=== PATIENT | female | born 1995 | race Caucasian/White ===

== ENCOUNTER 2022-07-25 12:56 | Emergency (ER) | payer OTHER ==
[~2022-07-25] VITALS: Ht 165.1 cm; Wt 46.7 kg
[2022-07-25] MEDS ORDERED: ONDANSETRON HCL/PF 4 MG/2 ML VIAL ONE (13:28)
[2022-07-25] MEDS ORDERED: ONDANSETRON HCL/PF 4 MG/2 ML VIAL IV ONE (13:30)
[2022-07-25] MEDS ORDERED: IV NS 0.9% 1,000 ML IV ONE (13:30)
--- NOTE | 2022-07-25 13:31 | NUR ---
PATIENT REFUSING IV START AT THIS TIME
[2022-07-25] MEDS ORDERED: LORAZEPAM INJ 2 MG/ML VIAL IV ONE (14:30)
[2022-07-25] MEDS ORDERED: ONDA4TAB11 PO (15:06)
[2022-07-25 15:43] VITALS: BP 110/60
--- NOTE | 2022-07-25 15:44 | NUR ---
Patient discharged to home in stable condition. Written and verbal after care instructions given. Patient verbalizes understanding of instruction.
== END 2022-07-25 15:43 | disposition home or self-care (01) ==
LOC: ER 12:56
DX: S06.0X1A Concussion with loss of consciousness of 30 minutes or less, initial encounter (principal); Z88.8 Allergy status to other drugs, medicaments and biological substances; W01.198A Fall on same level from slipping, tripping and stumbling with subsequent striking against other object, initial encounter; Y93.B9 Activity, other involving muscle strengthening exercises; Y92.89 Other specified places as the place of occurrence of the external cause; Y99.8 Other external cause status
CPT/HCPCS: 70450-TC; 71045-TC; 84703-TC; J2405; J7030

== ENCOUNTER 2022-09-25 19:08 | Emergency (ER) | payer OTHER ==
[~2022-09-25] VITALS: Ht 165.1 cm; Wt 46.7 kg
[~2022-09-25 19:08] MED LIST: ONDA4TAB11 PO
--- NOTE | 2022-09-25 19:20 | NUR ---
BIBSISTER FROM HOME W/ C/O L SIDE CHEST PAIN STARTED 4 DAYS AGO, ONGOING INTERMITENTLY. 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 PAIN DESCRIBED NON RADIATING, SQUEEZING. PT AAOX4, PLACED IN BED, VITALS CHECKED. AWAITING MD MONTES.
--- NOTE | 2022-09-25 19:32 | NUR ---
EMT AT BEDSIDE FOR EKG
--- NOTE | 2022-09-25 19:41 | NUR ---
PT PROVIDED WITH WARM BLANKET FOR COMFORT.
--- NOTE | 2022-09-25 19:55 | NUR ---
20GA RIGHT AC ESTABLISHED; BLOOD WORK COLLECTED, GIVEN TO MACHINED [employer]S METAL SPRAYER AT BEDSIDE
--- NOTE | 2022-09-25 20:00 | NUR ---
XR AT BEDSIDE
[2022-09-25 20:04] LABS: BASOPHILS % (AUTO) 0.5 % (0.0-2.0); EOSINOPHILS % (AUTO) 1.6 % (0.0-6.0); HEMATOCRIT 41 % (33-45); HEMOGLOBIN 13.6 g/dL (11.5-14.8); LYMPHOCYTES # (AUTO) 1.4 K/uL (0.8-4.8); LYMPHOCYTES % (AUTO) 21.7 % (20.0-44.0); MEAN CORPUSCULAR HGB CONC 34 g/dl (31.0-36.0); MEAN CORPUSCULAR VOLUME 88 fL (82-100); MONOCYTES # (AUTO) 0.7 K/uL (0.1-1.30); MONOCYTES % (AUTO) 10.8 % (2.0-12.0); NEUTROPHILS # (AUTO) 4.3 K/uL (1.8-8.9); NEUTROPHILS % (AUTO) 65.4 % (43.0-81.0); PLATELET COUNT (AUTO) 234 K/uL (150-450); RED BLOOD CELL COUNT(AUTO) 4.63 MIL/uL (4.0-5.2); WHITE BLOOD COUNT (AUTO) 6.6 K/uL (4.3-11.0)
[2022-09-25 20:13] LABS: CALCIUM, SERUM 9.8 mg/dL (8.5-10.1); CARBON DIOXIDE 26 mmol/L (21-32); CHLORIDE 102 mmol/L (98-107); CREATININE 0.8 mg/dL (0.6-1.3); GLUCOSE 85 mg/dL (74-106); POTASSIUM 4.5 mmol/L (3.5-5.1); SODIUM SERUM 137 mmol/L (136-145); UREA NITROGEN, BLOOD 13 mg/dL (7-18)
--- NOTE | 2022-09-25 20:55 | NUR ---
MD AT BEDSIDE; PT WILL BE DISCHARGED
[2022-09-25] MEDS ORDERED: KETOROLAC TROMETHAMINE INJ 30 MG/ML VIAL IV ONE (21:00)
[2022-09-25 21:08] VITALS: BP 134/78
--- NOTE | 2022-09-25 21:08 | NUR ---
Patient discharged to home in stable condition. Written and verbal after care instructions given. Patient verbalizes understanding of instruction. Pt ambulatory with a steady gait
== END 2022-09-25 21:08 | disposition home or self-care (01) ==
LOC: ER 19:14
DX: R07.89 Other chest pain (principal); F41.9 Anxiety disorder, unspecified; Z88.8 Allergy status to other drugs, medicaments and biological substances
CPT/HCPCS: 36415; 71045-TC; 80048-TC; 84443-TC; 84484-TC; 85025-TC

== ENCOUNTER 2022-10-21 22:16 | Emergency (ER) | payer OTHER ==
--- NOTE | 2022-10-22 00:17 | NUR ---
CALLED TO TRIAGE NO RESPONSE
--- NOTE | 2022-10-22 01:01 | NUR ---
CALLED TO TRIAGE NO RESPONSE
--- NOTE | 2022-10-22 01:26 | NUR ---
CALLED TO TRIAGE NO RESPONSE
== END 2022-10-22 01:27 | disposition left against medical advice (07) ==
LOC: ER 22:22
DX: Z53.21 Procedure and treatment not carried out due to patient leaving prior to being seen by health care provider (principal)

== ENCOUNTER 2023-10-08 13:46 | Emergency (ER) | payer OTHER ==
[~2023-10-08] VITALS: Ht 167.6 cm; Wt 49.9 kg
[2023-10-08] MEDS ORDERED: ONDANSETRON HCL/PF 4 MG/2 ML VIAL ONE (14:47)
[2023-10-08] MEDS ORDERED: PANTOPRAZOLE 40 MG VIAL ONE (14:47)
[2023-10-08] MEDS: IV NS 0.9% 1,000 ML BAG IV ONE (15:14)
[2023-10-08] MEDS: ONDANSETRON HCL/PF 4 MG/2 ML VIAL IVP ONE (15:15)
[2023-10-08] MEDS: PANTOPRAZOLE 40 MG VIAL IV ONE (15:15)
[2023-10-08] MEDS ORDERED: diphenhydrAMINE HCL 50 MG/ML VIAL ONE (15:20)
[2023-10-08] MEDS: diphenhydrAMINE HCL 50 MG/ML VIAL IV ONE (15:35)
[2023-10-08 15:37] LABS: BASOPHILS % (AUTO) 0.5 % (0.0-2.0); EOSINOPHILS # (AUTO) 0.1 K/uL (0.0-0.7); EOSINOPHILS % (AUTO) 1.5 % (0.0-6.0); HEMATOCRIT 42 % (33-45); HEMOGLOBIN 14.1 g/dL (11.5-14.8); LYMPHOCYTES # (AUTO) 1.4 K/uL (0.8-4.8); LYMPHOCYTES % (AUTO) 24.6 % (20.0-44.0); MEAN CORPUSCULAR HEMOGLOBIN 30 PG (26.0-33.0); MEAN CORPUSCULAR HGB CONC 34 g/dl (31.0-36.0); MEAN CORPUSCULAR VOLUME 88 fL (82-100); MONOCYTES # (AUTO) 0.5 K/uL (0.1-1.30); MONOCYTES % (AUTO) 8.8 % (2.0-12.0); NEUTROPHILS # (AUTO) 3.8 K/uL (1.8-8.9); NEUTROPHILS % (AUTO) 64.6 % (43.0-81.0); PLATELET COUNT (AUTO) 257 K/uL (150-450); RED BLOOD CELL COUNT(AUTO) 4.69 MIL/uL (4.0-5.2); RED CELL DISTRIBUTION WIDTH 12.6 % (11.5-15.0); WHITE BLOOD COUNT (AUTO) 5.9 K/uL (4.3-11.0)
[2023-10-08 15:55] LABS: CALCIUM, SERUM 9.2 mg/dL (8.5-10.1); CREATININE 0.6 mg/dL (0.6-1.3); POTASSIUM 3.8 mmol/L (3.5-5.1)
[2023-10-08 16:09] LABS: ALBUMIN 3.9 g/dL (3.4-5.0); BILIRUBIN,DIRECT 0.2 mg/dL (0.0-0.2); BILIRUBIN,TOTAL 0.8 mg/dL (0.2-1.0); TOTAL PROTEIN, SERUM 7.9 g/dL (6.4-8.2)
[2023-10-08 19:04] VITALS: BP 120/75; TEMP 98; O2SAT 100
== END 2023-10-08 19:04 | disposition home or self-care (01) ==
LOC: ER 14:00
DX: F41.0 Panic disorder [episodic paroxysmal anxiety] (principal); R07.89 Other chest pain; R10.816 Epigastric abdominal tenderness; R11.2 Nausea with vomiting, unspecified; F41.9 Anxiety disorder, unspecified; F32.A Depression, unspecified; Z88.8 Allergy status to other drugs, medicaments and biological substances; Z88.5 Allergy status to narcotic agent; Z88.6 Allergy status to analgesic agent; Z60.2 Problems related to living alone
CPT/HCPCS: 99285; 96374; 96361; 96375 ×2; 93005; 71045; 85025; 80048; 80076; 36415; 84443; J1200; J2405; J7030; J2470

== ENCOUNTER 2024-10-27 23:00 | Emergency (ER) | payer OTHER ==
[~2024-10-27] VITALS: Ht 167.6 cm; Wt 49.9 kg
[2024-10-28] MEDS: KETOROLAC TROMETHAMINE INJ 30 MG/ML VIAL IV ONE (00:11)
[2024-10-28] MEDS: IV NS 0.9% 1,000 ML IV ONE (00:11)
[2024-10-28 00:42] LABS: APPEARANCE,URINE TURBID (CLEAR); BLOOD, URINE NEGATIVE Ery/uL (NEGATIVE); LEUKOCYTE ESTERASE ,URINE NEGATIVE (NEGATIVE); NITRITE, URINE NEGATIVE (NEGATIVE); UGLUCOSE NEGATIVE (NEGATIVE)
[2024-10-28 00:49] LABS: ADD URINE CULTURE NO; PREGNANCY TEST URINE QUAL NEGATIVE (NEGATIVE); SQUAMOUS EPITHELIAL CELL,UR Moderate /HPF (None Seen)
[2024-10-28 01:16] VITALS: BP 110/70; TEMP 98; O2SAT 100
[2024-10-28 01:42] LABS: AMPHETAMINE, URINE NEGATIVE (NEGATIVE); BARBITURATE, URINE NEGATIVE (NEGATIVE); BENZODIAZEPINE, URINE NEGATIVE (NEGATIVE); CANNABINOID, URINE NEGATIVE (NEGATIVE); COCCAINE, URINE NEGATIVE (NEGATIVE); OPIATE, URINE NEGATIVE (NEGATIVE)
[2024-10-29] MEDS ORDERED: IBUP-1490 PO (20:37)
[2024-10-29] MEDS ORDERED: ONDA4TAB5 PO (20:45)
== END 2024-10-28 01:17 | disposition left against medical advice (07) ==
LOC: ER 23:31
DX: R42 Dizziness and giddiness (principal); R12 Heartburn; R51.9 Headache, unspecified; Z88.5 Allergy status to narcotic agent; Z79.899 Other long term (current) drug therapy
CPT/HCPCS: 71045-TC; 81001; 84703-TC; J7030

== ENCOUNTER 2024-10-29 18:48 | Emergency (ER) | payer MEDICAID, OTHER ==
[~2024-10-29] VITALS: Ht 167.6 cm; Wt 49.9 kg
[2024-10-29] MEDS: IBUPROFEN 600 MG TABLET PO ONE (19:25)
[2024-10-29] MEDS: IV NS 0.9% 1,000 ML BAG IV ONE (19:25)
[2024-10-29] MEDS ORDERED: IBUP-1490 PO (20:37)
[2024-10-29] MEDS ORDERED: ONDA4TAB5 PO (20:45)
[2024-10-29 21:10] VITALS: BP 120/55; TEMP 98.3; O2SAT 99
== END 2024-10-29 21:11 | disposition home or self-care (01) ==
LOC: ER 18:51
DX: R51.9 Headache, unspecified (principal); Z88.5 Allergy status to narcotic agent; Z60.2 Problems related to living alone; Z79.899 Other long term (current) drug therapy
CPT/HCPCS: 70450-TC; J7030